=== PATIENT | female | born 1990 | race Two or more races ===

== ENCOUNTER 2023-07-30 03:25 | Emergency (ER) | payer OTHER ==
[~2023-07-30] VITALS: Ht 180.3 cm; Wt 117.9 kg
[~2023-07-30 03:25] MED LIST: PREVACID30 MG PO
== END 2023-07-30 06:02 | disposition home or self-care (01) ==
LOC: ER 03:25
DX: M94.0 Chondrocostal junction syndrome [Tietze] (principal); Z88.8 Allergy status to other drugs, medicaments and biological substances; Z87.09 Personal history of other diseases of the respiratory system; Z20.822 Contact with and (suspected) exposure to COVID-19